=== PATIENT | male | born 1975 | race American Indian/Alaskan Native ===

== ENCOUNTER 2018-07-05 23:36 | Emergency (ER) | payer SELFPAY ==
--- NOTE | 2018-07-06 00:17 | XRay Report ---
PROCEDURE: XR HAND 3+V RT TECHNIQUE: Right hand radiographs, PA, lateral, and oblique views. HISTORY: swelling and pain COMPARISONS: None . FINDINGS: Fracture (s) and/or Dislocation(s): None . Alignment: Normal . Joint space(s): Normal . Soft tissues: Normal . Bone mineralization: Normal . Foreign bodies: None . IMPRESSION: Normal Examination . This document is electronically signed by Jessica Cunningham DO., Jul 06 2018 12:15:11 AM ET
[2018-07-06] MEDS ORDERED: NORCO 5/325 PO ONE (06:04)
[2018-07-06] MEDS ORDERED: BOOSTRIX IM ONE (06:04)
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
[2018-07-06 08:14] VITALS: BP 154/90
== END 2018-07-06 08:13 | disposition home or self-care (01) ==
LOC: ED 23:36
DX: S63.636A Sprain of interphalangeal joint of right little finger, initial encounter (principal); S16.1XXA Strain of muscle, fascia and tendon at neck level, initial encounter; M54.2 Cervicalgia; M79.644 Pain in right finger(s); Y08.89XA Assault by other specified means, initial encounter; Y93.89 Activity, other specified; Y92.89 Other specified places as the place of occurrence of the external cause; Y99.8 Other external cause status
CPT/HCPCS: 70450; 72125; 90471; 90715